=== PATIENT | female | born 1975 | race Caucasian/White ===

== ENCOUNTER 2018-05-12 05:29 | Day surgery (SDC) | payer OTHER ==
[2018-05-12] MEDS: DEXAMETHASONE 1 MG TAB PO (06:08)
[2018-05-12] MEDS: oxyCODONE (CR) 10 MG TAB [oxyCONTIN] PO (06:08)
[2018-05-12] MEDS: traMADol 50 MG TAB PO (06:09)
[2018-05-12] MEDS: GABAPENTIN 300 MG CAP PO (06:09)
[2018-05-12] MEDS ORDERED: CEFAZOLIN 1 GM INJ (06:58)
[2018-05-12] MEDS ORDERED: LIDOCAINE 2% (SDV) 5 ML INJ (06:58)
[2018-05-12] MEDS ORDERED: PROPOFOL 20 ML (06:58)
[2018-05-12] MEDS ORDERED: ONDANSETRON 4 MG INJ (06:59)
[2018-05-12] MEDS ORDERED: METOCLOPRAMIDE 10 MG INJ (06:59)
[2018-05-12] MEDS ORDERED: MEPERIDINE 100 MG INJ (06:59)
[2018-05-12] MEDS ORDERED: ONDANSETRON 4 MG INJ IV (08:00)
[2018-05-12] MEDS ORDERED: LABETALOL HCL 20MG INJ IV (08:00)
[2018-05-12] MEDS ORDERED: OXYCODONE/ACETAMINOPHEN (5/325) TAB PO ×2 (08:00)
[2018-05-12] MEDS ORDERED: DIPHENHYDRAMINE 50 MG INJ IV (08:00)
[2018-05-12] MEDS ORDERED: EPHEDrine SULFATE 50 MG/5 ML SYG IV (08:00)
[2018-05-12] MEDS ORDERED: FENTAnyl 50 MCG/ML VIAL IV ×3 (08:00)
[2018-05-12] MEDS ORDERED: MEPERIDINE 25 MG INJ IV (08:00)
[2018-05-12] MEDS ORDERED: hydrALAzine 20 MG INJ IV (08:00)
[2018-05-12] MEDS ORDERED: MIDAZOLAM 1 MG/ML 2 ML INJ IV (08:00)
[2018-05-12] MEDS ORDERED: METOCLOPRAMIDE 10 MG INJ IV (08:00)
[2018-05-12] MEDS ORDERED: HYDROmorphONE 1 MG/5 ML IV SYRINGE IV ×2 (08:00)
[2018-05-12] MEDS: HYDROmorphONE 1 MG/5 ML IV SYRINGE IV (08:45)
[2018-05-12] MEDS: BUPIVACAINE 0.5% (SDV) 30 ML, morphine SULFATE (PF) 8 MG, EPINEPHrine 0.3 MG, KETOROLAC... IRR (09:36)
[2018-05-12] MEDS: TRANEXAMIC ACID 1,000 MG in DEXTROSE 5% 100 ML IVPB (09:37)
== END 2018-05-12 10:20 | disposition home or self-care (01) ==
LOC: SDS 05:29
DX: S73.192A Other sprain of left hip, initial encounter (principal); M25.252 Flail joint, left hip; M65.9 Synovitis and tenosynovitis, unspecified; X58.XXXA Exposure to other specified factors, initial encounter
CPT/HCPCS: 29862; 73501; 73530